=== PATIENT | male | born 1995 ===

== ENCOUNTER 2020-03-25 18:10 | Outpatient (REF) | payer OTHER, SELFPAY | END 2020-03-25 18:11 | disposition home or self-care (01) | LOC: HO.LAB 18:10 | PROVIDERS: Visit Provider Internal Medicine | DX: Z20.828 Contact with and (suspected) exposure to other viral communicable diseases (principal) | CPT/HCPCS: C9803; U0003 ==

== ENCOUNTER 2021-05-23 00:46 | Emergency (ER) | payer OTHER, SELFPAY ==
[2021-05-23 00:49] VITALS: BP 123/83; PULSE 97; RESP 16; TEMP 36.9; O2SAT 95; BMI 19.8
--- NOTE | 2021-05-23 00:56 | ED_ITS ---
HPI - GI Bleed General Chief complaint: Abdominal Pain Stated complaint: bloody stool ; hemorroids ? Time Seen by Provider: 05/23/21 00:48 Source: patient Mode of arrival: ambulatory Limitations: no limitations History of Present Illness MD complaint: blood on toilet paper and blood streaked stool Onset (ago): day(s) (2) Pain Consistency: intermittent Severity: mild Relieving factors: none Exacerbating factors: bowel movement Context: other (hx of constipation in the past) Associated symptoms: denies other symptoms Treatments Prior to Arrival: none Related Data Previous Rx's Medication Instructions Recorded docusate sodium 100 mg capsule 100 mg PO BID PRN #30 cap 05/23/21 (Colace) hydrocortisone 1 %-pramoxine 1 % 1 appl WA QID PRN #10 g 05/23/21 rectal foam (Proctofoam HC) sennosides 8.6 mg capsule (senna) 8.6 mg PO BEDTIME PRN #30 cap 05/23/21 Allergies Allergy/AdvReac Type Severity Reaction Status Date / Time No Known Allergies Allergy Verified 05/23/21 00:56 Review of Systems Verdana 4l Review of Systems: Verdana 4d Verdana 4d Constitutional : No Weight loss, No Fever, No Chills ENT/Mouth : No sore throat, No Rhinorrhea Eyes: No Swelling, No Redness Cardiovascular : No Chest Pain, No SOB, NoEdema Respiratory : No Cough, No Sputum, No Wheezing Gastrointestinal :: no Nausea, no Vomiting, no Diarrhea, no abdominal Pain, No Hematochezia, No Melena, pos blood only on stool and toilet paper not in toilet bowl and no clots Genitourinary : No Dysuria, No Urinary Frequency, No Hematuria, No Urgency Musculoskeletal : No joint pain, No Myalgias, No Joint Swelling Skin : No Skin Lesions, No rash Neuro : No Weakness, No Numbness, No Dizziness, No Headache Psych : No Anxiety/Panic, No Depression Heme/Lymph: No Bruising, No Lymphadenopathy Endocrine : No Polyuria, No Polydipsia All other systems reviewed and are negative. [facility] Past Medical History Attestation statement: The following information was validated with the patient. Medical History No known health problems Surgical History (Updated 05/23/21 @ 00:54 by Mayra Nuno) History of appendectomy Hx of tonsillectomy Social History Social History (Updated 05/23/21 @ 01:03 by Payton Montes DO) Patient Tobacco Use Status: Never used Tobacco Physical Exam Verdana 4l Vital Signs: Verdana 4d Verdana 4d Vital Signs: Verdana 4d Verdana 4Bd Last Vital Signs Verdana 4d Dietary Supervisor New 4d Dietary Supervisor New 4d Temp 98.5 F 05/23/21 00:49 Dietary Supervisor New 4d Pulse 97 05/23/21 00:49 Dietary Supervisor New 4d Resp 16 05/23/21 00:49 BP 123/83 05/23/21 00:49 Pulse Ox 95 05/23/21 00:49 BMI result Body Mass Index 19.8 Appearance: Alert. Oriented X3. No acute distress. Eyes: Pupils equal, round and reactive to light. ENT: Pharynx normal. Neck: Normal inspection. Neck supple. CVS: Normal heart rate and rhythm. Pulses normal. Respiratory: No respiratory distress. Breath sounds normal. Abdomen: Soft and non-tender. Rectal: no external hemorrhoids, no ttp, no mass, small internal hemorrhoids noted, brown stool light Skin: Skin warm and dry. Normal skin color. Normal skin turgor. Extremities: No lower extremity edema. No calf ttp Neuro: Oriented X 3. No motor deficit. No sensory deficit. Course Course Course Narrative: H/H stable, plts borderline low will avoid ASA negative occult stool MDM - GI Bleed MDM Narrative Medical decision making narrative: 25 yo male with no PMH here with 2 days of intermittent blood on his stool and on paper no sig pain no abdominal pain no fevers no fam hx of IBD (thinks brother had pilonidal cyst) he is straining. Exam ?internal hemorrhoids. At this time will obtain CBC, guiac, CRP - start on stool softeners and cream. Follow up with GI doctor. VS stable. Lab Data Result diagrams: 05/23/21 01:07 Labs: Lab Results 05/23/21 05/23/21 Range/Units 01:07 01:08 WBC 7.7 (4.8-10.8) X10*3/uL RBC 4.99 (4.60-5.80) X10*6/uL Hgb 15.6 (14.0-18.0) g/dl Hct 44.7 (42.0-52.0) % MCV 89.6 (80.0-98.0) fL MCH 31.3 (27.0-33.0) pg MCHC 34.9 (31.0-36.0) g/dl RDW 12.3 (11.0-16.0) % Plt Count 156 L (160-400) X10*3/uL MPV 11.9 (9.4-12.4) fL Absolute Nucleated RBC 0.000 (0.0-0.012) X10*3/uL Nucleated RBC % (auto) 0.0 (0.0-0.2) /100WBC Stool Occult Blood NEGATIVE (NEGATIVE) Discharge Plan Discharge Clinical Impression: Rectal bleeding, Hemorrhoids, internal Patient Disposition: Home, Self-Care Instructions: Hemorrhoids (ED), Rectal Bleeding (ED) Additional Instructions: return to ED for any worsening symptoms or concerns take stool softeners follow up with your doctor to see GI if you need a referral avoid aspirin products, drink plenty of water 60 ounces a day your platelet count was just minimally under low please have your doctor monitor this over the next 2 weeks Prescriptions: New docusate sodium [Colace] 100 mg capsule 100 mg PO BID PRN (Reason: constipation) Qty: 30 0RF senna 8.6 mg capsule 8.6 mg PO BEDTIME PRN (Reason: constipation) Qty: 30 0RF Proctofoam HC 1-1 % foam 1 appl WA QID PRN (Reason: hemorrhoids) Qty: 10 0RF Referrals: Puneet Munguia [Physician] - 2 weeks (gastroenterology) Stand Alone Forms: Work/School Release
[2021-05-23 01:16] LABS: Hematocrit 44.7 % (42.0-52.0); Hemoglobin 15.6 g/dl (14.0-18.0); Mean Corpuscular HGB Conc 34.9 g/dl (31.0-36.0); Mean Corpuscular Hemoglobin 31.3 pg (27.0-33.0); Mean Corpuscular Volume 89.6 fL (80.0-98.0); Mean Platelet Volume 11.9 fL (9.4-12.4); Platelet Count 156 X10*3/uL (160-400); Red Blood Count 4.99 X10*6/uL (4.60-5.80); Red Cell Distribution Width 12.3 % (11.0-16.0); White Blood Count 7.7 X10*3/uL (4.8-10.8)
[2021-05-23 01:20] LABS: OBS Int Ctl Valid YES; OBS1 NEGATIVE (NEGATIVE)
[2021-05-23 01:30] LABS: C Reactive Protein 0.04 mg/dL (< or = 0.50)
== END 2021-05-23 01:56 | disposition home or self-care (01) ==
LOC: HO.ED 01:42
PROVIDERS: Emergency Provider Emergency Medicine
DX: K62.5 Hemorrhage of anus and rectum (principal); K64.8 Other hemorrhoids; Z79.899 Other long term (current) drug therapy
CPT/HCPCS: 36415; 82272; 85027; 86140; 99283